=== PATIENT | male | born 1975 | race African-American/Black ===

== ENCOUNTER 2016-06-13 22:03 | Emergency (ER) | payer OTHER ==
[~2016-06-13] VITALS: Ht 185.4 cm; Wt 113.4 kg
[2016-06-13 22:59] LABS: Basophils # (auto) 0 uL; Basophils % (auto) 0.3 % (0.0-2.0); DEFINITIVE VIEW TRANSMISSION; Eosinophils # (auto) 0.2 uL; Hematocrit 44.3 % (41.0-53.0); Hemoglobin 14.3 g/dL (13.5-17.5); Lymphocytes # (auto) 1.8 uL; Lymphocytes % (auto) 21.8 % (10.0-50.0); Mean Corpuscular Hemoglobin 26.9 pg (28.0-32.0); Mean Corpuscular Hgb Conc. 32.2 g/dL (32.0-36.0); Mean Corpuscular Volume 83.5 fL (80.0-100.0); Mean Platelet Volume 8.2 fL (7.4-10.4); Monocytes # (auto) 0.6 uL; Monocytes % (auto) 6.6 % (0.0-12.0); Neutrophils # (auto) 5.9 uL; Neutrophils % (auto) 69.3 % (37.0-80.0); Platelet Count (auto) 287 10^3/uL (140-450); Red Cell Distribution Width 14.2 % (11.6-16.0); White Blood Cell 8.5 10^3/uL (4.4-10.8)
[2016-06-13 23:13] LABS: Albumin 3.8 g/dL (3.4-5.0); BUN/Creatinine Ratio 7.6; Calcium 8.3 mg/dL (8.5-10.1); Potassium 3.8 mmol/L (3.5-5.1)
[2016-06-13 23:15] LABS: Bilirubin, Total 0.4 mg/dL (0.2-1.0); Total Protein 7.5 g/dL (6.4-8.2)
[2016-06-14] MEDS ORDERED: SODIUM CHLORIDE 0.9% 1,000 ML IV ONE (07:50)
[2016-06-14] MEDS ORDERED: METOCLOPRAMIDE HCL 5MG/ml INJ 2ml VIAL IV ONE (08:00)
[2016-06-14] MEDS ORDERED: NALBUPHINE HCL 10 MG/1ml INJECTION IV ONE (08:00)
[2016-06-14 09:57] LABS: Urine Bilirubin Negative (Negative); Urine Blood Negative /uL (Negative); Urine Color Yellow (Yellow); Urine Glucose Normal (Normal); Urine Ketone Negative (Negative); Urine Nitrite Negative (Negative); Urine RBC <1 /hpf (0 - 3); Urine Squamous Epithelial Cell FEW /hpf (<5); Urine Urobilinogen Normal (Negative)
[2016-06-14 11:41] VITALS: BP 131/83
== END 2016-06-14 13:00 | disposition home or self-care (01) ==
LOC: ER 22:07
DX: K52.9 Noninfective gastroenteritis and colitis, unspecified (principal); N39.0 Urinary tract infection, site not specified; K76.0 Fatty (change of) liver, not elsewhere classified; R73.9 Hyperglycemia, unspecified; R11.2 Nausea with vomiting, unspecified; Z88.6 Allergy status to analgesic agent; G89.29 Other chronic pain
CPT/HCPCS: 36415; 74176; 80053; 81001; 82150; 83690; 85025; 96361; 96374; 96375; 99285; J2300; J2765; J7030

== ENCOUNTER 2016-09-27 18:06 | Emergency (ER) | payer OTHER ==
[~2016-09-27] VITALS: Ht 185.4 cm; Wt 113.4 kg
[2016-09-27 18:12] VITALS: BP 145/93
== END 2016-09-27 22:00 | disposition home or self-care (01) ==
LOC: ER 18:11
DX: J20.9 Acute bronchitis, unspecified (principal)

== ENCOUNTER 2016-11-14 05:50 | Emergency (ER) | payer MEDICAID, OTHER ==
[~2016-11-14] VITALS: Ht 185.4 cm; Wt 113.4 kg
[2016-11-14 06:04] VITALS: BP 132/68
[2016-11-14] MEDS ORDERED: KETOROLAC TROMETH 60MG/2ML VIAL IM ONE (08:15)
== END 2016-11-14 08:37 | disposition home or self-care (01) ==
LOC: ER 05:54
DX: S39.012A Strain of muscle, fascia and tendon of lower back, initial encounter (principal); Z88.6 Allergy status to analgesic agent; R51 Headache; W01.0XXA Fall on same level from slipping, tripping and stumbling without subsequent striking against object, initial encounter; Y93.89 Activity, other specified; Y99.8 Other external cause status; Y92.89 Other specified places as the place of occurrence of the external cause
CPT/HCPCS: 96372; 99283; J1885

== ENCOUNTER 2017-01-24 15:34 | Emergency (ER) | payer MEDICAID ==
[~2017-01-24] VITALS: Ht 185.4 cm; Wt 113.4 kg
[2017-01-24 17:06] LABS: Basophils # (auto) 0 uL; Basophils % (auto) 0.4 % (0.0-2.0); Eosinophils # (auto) 0.2 uL; Hematocrit 45.5 % (41.0-53.0); Hemoglobin 14.6 g/dL (13.5-17.5); Lymphocytes # (auto) 1.5 uL; Lymphocytes % (auto) 17.3 % (10.0-50.0); Mean Corpuscular Hemoglobin 27.5 pg (28.0-32.0); Mean Corpuscular Hgb Conc. 32.2 g/dL (32.0-36.0); Mean Corpuscular Volume 85.6 fL (80.0-100.0); Mean Platelet Volume 7.8 fL (6.9-10.8); Monocytes # (auto) 0.7 uL; Monocytes % (auto) 7.5 % (0.0-12.0); Neutrophils # (auto) 6.4 uL; Neutrophils % (auto) 72.8 % (37.0-80.0); Nucleated Red Blood Cells % 0.1 %; Platelet Count (auto) 284 10^3/uL (140-450); Red Cell Distribution Width 14.3 % (11.8-14.3); White Blood Cell 8.7 10^3/uL (4.4-10.8)
[2017-01-24 17:25] LABS: BUN/Creatinine Ratio 9.9; Potassium 4.3 mmol/L (3.5-5.1)
[2017-01-24 17:27] LABS: Bilirubin, Total 0.3 mg/dL (0.2-1.0); Total Protein 7.2 g/dL (6.4-8.2)
[2017-01-24 21:15] VITALS: BP 140/75
== END 2017-01-24 21:29 | disposition home or self-care (01) ==
LOC: ER 15:41
DX: K52.9 Noninfective gastroenteritis and colitis, unspecified (principal); G89.29 Other chronic pain; M54.5 Low back pain; Z88.6 Allergy status to analgesic agent
CPT/HCPCS: 36415; 80053; 85025